=== PATIENT | male | born 1960 | race Caucasian/White ===

== ENCOUNTER 2019-09-17 10:07 | Outpatient (CLI) | payer BC, SELFPAY ==
--- NOTE | 2019-09-17 10:14 | CT_ITS ---
WS: [id number] CT scan of the chest without IV contrast, additional two-dimensional coronal and sagittal reconstruct ion was performed. 09/17/2019 Clinical Data: PERSISENT COUGH/EMPHYSEMA ON CHEST XRAY Comparison: None. DLP: 496.[address] scans at [facility] use at least one of these dose optimization techniques: automat ed exposure control; mA and/or kV adjustment per patient size (includes targeted exams where dose is matched to clinical indication); or iterative reconstruction. Findings: No nodules or masses are seen. There is a small left pleural effusion. The lungs are hyperexpanded. T he heart size is normal with no pericardial effusion. The pulmonary arterial system and thoracic aort a demonstrate no abnormalities or dilatations. The trachea bifurcates normally into the bronchi. Ther e is no axillary or significant mediastinal adenopathy. The upper abdomen shows no abnormalities. Mild osteoarthritic change of the thoracic vertebral bodies is seen. CT/CT chest wo con [id number] Impression: 1. Hyperinflation. 2. Negative for acute cardiopulmonary disease.
== END 2019-09-17 10:08 | disposition home or self-care (01) ==
LOC: RAD 10:10
PROVIDERS: Family Provider Internal Medicine; PCP Internal Medicine; Visit Provider Family Medicine
DX: J43.9 Emphysema, unspecified (principal); R05 Cough
CPT/HCPCS: 71250

== ENCOUNTER 2019-10-26 08:37 | Outpatient (CLI) | payer BC, SELFPAY ==
--- NOTE | 2019-10-26 08:50 | FL_ITS ---
WS: [id number] ESOPHAGRAM TECHNIQUE: Double contrast examination was performed initially with Gastrografin then with thin and t hick barium. Upright and RAMIREZ images were obtained. CLINICAL INFORMATION: CHRONIC COUGH COMPARISON: CT chest September 17, 2019 reviewed FINDINGS: Swallowing: Normal. Esophagus: Normal morphology and motility. No stricture or mass. No evidence of tracheoesophageal fis andrew or aspiration. Tiny esophageal hiatal hernia. Gastroesophageal reflux: None. Fluoroscopy time: 4.4 minutes. FL/FL barium swallow [id number] IMPRESSION: 1. No evidence of aspiration penetration. 2. Normal esophageal motility. No stricture or mass. 3. No evidence of tracheoesophageal fistula or aspiration. 4. Tiny esophageal hiatal hernia. 5. No reflux.
[2019-10-26] MEDS: diatrizoate meglumine 120 mL Sol PO (10:07)
== END 2019-10-26 08:38 | disposition home or self-care (01) ==
LOC: RAD 08:41
PROVIDERS: Family Provider Internal Medicine; PCP Internal Medicine; Visit Provider Internal Medicine Critical Care Medicine
DX: R05 Cough (principal); K44.9 Diaphragmatic hernia without obstruction or gangrene
CPT/HCPCS: 74220

== ENCOUNTER 2025-03-02 09:43 | Outpatient (CLI) | payer MEDICARE, SELFPAY ==
--- NOTE | 2025-03-02 09:51 | CTR_ITS ---
PROCEDURE INFORMATION: Exam: CT Chest Without Contrast; Diagnostic Exam date and time: 03/02/2025 11:00 AM Age: 64 years old Clinical indication: Other: Abnormal weight loss TECHNIQUE: Imaging protocol: Diagnostic computed tomography of the chest without contrast. Radiation optimization: All CT scans at this facility use at least one of these dose optimization techniques: automated exposure control; mA and/or kV adjustment per patient size (includes targeted exams where dose is matched to clinical indication); or iterative reconstruction. COMPARISON: CT chest con [id number] 09/17/2019 10:36 AM RADIATION DOSE METRICS: Total DLP (mGy-cm): 790.53 FINDINGS: Lungs: Unremarkable. No consolidation. No masses. Pleural spaces: Unremarkable. No pneumothorax. No pleural effusion. Heart: Unremarkable. No cardiomegaly. No pericardial effusion. Coronary arteries: There is no evidence of coronary artery calcifications. Lymph nodes: Unremarkable. No enlarged lymph nodes. Vasculature: Unremarkable. No aortic aneurysm. Bones/joints: The bony structures demonstrate diffuse osteopenia. No focal lytic or sclerotic lesions noted. No fracture. Soft tissues: Unremarkable. CT/CT chest [facility] [id number] IMPRESSION: 1. No acute findings. 2. Unusual bony osteopenia of uncertain etiology
--- NOTE | 2025-03-02 09:51 | CTR_ITS ---
PROCEDURE INFORMATION: Exam: CT Abdomen And Pelvis Without And With Contrast Exam date and time: 03/02/2025 11:00 AM Age: 64 years old Clinical indication: Other: Abnormal weight loss TECHNIQUE: Imaging protocol: Computed tomography of the abdomen and pelvis without and with contrast. Radiation optimization: All CT scans at this facility use at least one of these dose optimization techniques: automated exposure control; mA and/or kV adjustment per patient size (includes targeted exams where dose is matched to clinical indication); or iterative reconstruction. Contrast material: OMNI 350; Contrast volume: 100 ml; Contrast route: INTRAVENOUS (IV); COMPARISON: CT chest wo con [id number] 09/17/2019 10:36 AM RADIATION DOSE METRICS: Total DLP (mGy-cm): 790.53 FINDINGS: Lungs: Lung bases are clear. No pleural effusion. Liver: Several tiny cysts are scattered throughout the liver measuring up to 1 cm in diameter. Gallbladder and biliary ducts: Normal. No calcified stones. No ductal dilation. Pancreas: Normal. No ductal dilation. Spleen: Normal. No splenomegaly. Adrenal glands: Normal. No mass. Kidneys and ureters: Normal. No hydronephrosis. Stomach and bowel: Unremarkable. No obstruction. No mucosal thickening. Appendix: No evidence of appendicitis. Intraperitoneal space: Unremarkable. No free air. No significant fluid collection. Vasculature: Unremarkable. No abdominal aortic aneurysm. Lymph nodes: Unremarkable. No enlarged lymph nodes. Urinary bladder: Unremarkable as visualized. Reproductive: The prostate gland is abnormally enlarged. Bones/joints: The bony structures demonstrate diffuse osteopenia. No focal bony lesions or fractures noted. Soft tissues: Unremarkable. CT/CT abdomen pelvis wo/w [id number] IMPRESSION: 1. No acute findings. 2. Tiny hepatic cysts, stable since 2019 3. Prostate enlargement 4. Unusual bony osteopenia of uncertain etiology
[2025-03-02] MEDS: iohexol 350 mg/mL 500 mL Btl (per mL) IV (11:03)
[2025-03-02] MEDS: iohexol 350 mg/mL 500 mL Btl (per mL) PO (11:04)
== END 2025-03-02 09:44 | disposition home or self-care (01) ==
PROVIDERS: Family Provider Internal Medicine; PCP Electrodiagnostic Medicine; Visit Provider Electrodiagnostic Medicine
DX: R63.4 Abnormal weight loss (principal); M85.88 Other specified disorders of bone density and structure, other site; N40.0 Benign prostatic hyperplasia without lower urinary tract symptoms; K76.89 Other specified diseases of liver
CPT/HCPCS: 71250; 74178

== ENCOUNTER 2025-03-23 14:33 | Outpatient (CLI) | payer MEDICARE, SELFPAY ==
--- NOTE | 2025-03-23 14:38 | XR_ITS ---
WS: [id number] SCREENING DEXA SCAN [facility] CLINICAL INFORMATION: OSTEOPOROSIS COMPARISON: None. FINDINGS: The L1-L4 bone mineral density measures 1.086 g/cm2. This corresponds to a T score score of -1.1 and Z score of -0.2. Left femoral neck bone mineral density measures 0.905 g/cm2. This corresponds to a T score of -1.4 and Z score of -0.5. Right femoral neck bone mineral density measures 0.815 g/cm2. This corresponds to a T score -2.0of and Z score of -1.1. Mean femoral neck bone mineral density measures 0.860 g/cm2. This corresponds to a T score of -1.7 and Z score of -0.8. XR/XR DEXA axial skeleton* [id number] IMPRESSION: Osteopenia lumbar spine. Osteopenia femoral necks. Patient's FRAX calculated 10 year probability for major osteoporotic fracture i s 13.3% and osteoporotic hip fracture is 4.1%.
== END 2025-03-23 14:34 | disposition home or self-care (01) ==
LOC: RAD 14:33
PROVIDERS: Family Provider Internal Medicine; PCP Electrodiagnostic Medicine; Visit Provider Electrodiagnostic Medicine
DX: Z13.820 Encounter for screening for osteoporosis (principal); M85.852 Other specified disorders of bone density and structure, left thigh; M85.851 Other specified disorders of bone density and structure, right thigh
CPT/HCPCS: 77080